=== PATIENT | male | born 1990 | race Caucasian/White ===

== ENCOUNTER 2018-02-14 17:29 | Emergency (ER) | payer OTHER ==
[~2018-02-14] VITALS: Ht 172.7 cm; Wt 74.8 kg
[~2018-02-14 17:29] MED LIST: AUGMENTIN 875875 MG PO; FLEXERIL10 MG PO; KEFLEX500 MG PO; KETOROLAC10 MG PO; MOTRIN800 MG PO; NKHM; ZITHROMAX Z PA250 MG PO
== END 2018-02-14 19:30 | disposition home or self-care (01) ==
LOC: ED
DX: S61.214A Laceration without foreign body of right ring finger without damage to nail, initial encounter (principal); S61.216A Laceration without foreign body of right little finger without damage to nail, initial encounter; F17.200 Nicotine dependence, unspecified, uncomplicated; W25.XXXA Contact with sharp glass, initial encounter; Y93.E9 Activity, other interior property and clothing maintenance; Y92.098 Other place in other non-institutional residence as the place of occurrence of the external cause; Y99.9 Unspecified external cause status

== ENCOUNTER 2018-11-24 10:31 | Emergency (ER) | payer OTHER ==
[~2018-11-24] VITALS: Ht 170.1 cm; Wt 77.1 kg
[2018-11-24] MEDS ORDERED: IBU800 MG PO (11:54)
[2018-11-24] MEDS ORDERED: VICODIN 5-3001 EACH PO (11:54)
[2019-02-21] MEDS ORDERED: Motrin,Rufen800 MG PO (20:24)
== END 2018-11-24 12:04 | disposition home or self-care (01) ==
LOC: ED 10:31
DX: S82.65XA Nondisplaced fracture of lateral malleolus of left fibula, initial encounter for closed fracture (principal); W00.0XXA Fall on same level due to ice and snow, initial encounter; Y93.01 Activity, walking, marching and hiking; Y92.89 Other specified places as the place of occurrence of the external cause; Y99.8 Other external cause status

== ENCOUNTER → 2018-12-20 | Outpatient (CLI) | payer OTHER ==
[~2018-12-20] MED LIST changes: +IBU800 MG PO; +Motrin,Rufen800 MG PO; +VICODIN 5-3001 EACH PO
== END | disposition home or self-care (01) ==
LOC: RAD 16:07
DX: S82.65XA Nondisplaced fracture of lateral malleolus of left fibula, initial encounter for closed fracture (principal); X58.XXXA Exposure to other specified factors, initial encounter; Y93.89 Activity, other specified; Y92.89 Other specified places as the place of occurrence of the external cause; Y99.8 Other external cause status

== ENCOUNTER → 2019-01-10 | Outpatient (CLI) | payer OTHER | END | disposition home or self-care (01) | LOC: ORTHO 03:38 | DX: S82.65XD Nondisplaced fracture of lateral malleolus of left fibula, subsequent encounter for closed fracture with routine healing (principal); W19.XXXD Unspecified fall, subsequent encounter ==

== ENCOUNTER → 2019-02-07 | Outpatient (CLI) | payer OTHER | END | disposition home or self-care (01) | LOC: ORTHO 02:39 | DX: S82.832D Other fracture of upper and lower end of left fibula, subsequent encounter for closed fracture with routine healing (principal); X58.XXXD Exposure to other specified factors, subsequent encounter ==

== ENCOUNTER → 2019-04-09 | Outpatient (CLI) | payer OTHER | END | disposition home or self-care (01) | LOC: ORTHO 00:55 | DX: S82.832D Other fracture of upper and lower end of left fibula, subsequent encounter for closed fracture with routine healing (principal); X58.XXXD Exposure to other specified factors, subsequent encounter ==

== ENCOUNTER → 2019-04-16 | Outpatient (CLI) | payer OTHER | END | disposition home or self-care (01) | LOC: MRI 13:00 | DX: M84.375A Stress fracture, left foot, initial encounter for fracture (principal); M79.89 Other specified soft tissue disorders; M85.89 Other specified disorders of bone density and structure, multiple sites; R60.9 Edema, unspecified; M76.822 Posterior tibial tendinitis, left leg; M65.872 Other synovitis and tenosynovitis, left ankle and foot; X58.XXXA Exposure to other specified factors, initial encounter; Y93.89 Activity, other specified; Y92.89 Other specified places as the place of occurrence of the external cause; Y99.8 Other external cause status ==

== ENCOUNTER → 2019-07-23 | Outpatient (CLI) | payer OTHER | END | disposition home or self-care (01) | LOC: ORTHO 00:52 → LAB 00:52 → ORTHO 23:15 | DX: S92.335A Nondisplaced fracture of third metatarsal bone, left foot, initial encounter for closed fracture (principal); E55.9 Vitamin D deficiency, unspecified; X58.XXXA Exposure to other specified factors, initial encounter; Y93.89 Activity, other specified; Y92.89 Other specified places as the place of occurrence of the external cause; Y99.8 Other external cause status ==